=== PATIENT | female | born 1955 | race Caucasian/White ===

== ENCOUNTER 2019-03-04 08:43 | Inpatient (IN) ==
--- NOTE | 2019-03-04 09:20 | PROVIDER DOCUMENTATION ---
HPI-Respiratory General - General Chief Complaint: Shortness of Breath Stated Complaint: SOB / SINUS ISSUES Time Seen by Provider: 03/04/19 09:08 Source: patient Allergies/Adverse Reactions: Patient Allergies Allergy/AdvReac Type Severity Reaction Status Date / Time No Known Allergies Allergy Verified 04/20/15 10:56 Home Medications: Home Medication List Medication Instructions Recorded Confirmed Last Taken Type Cyclobenzaprine [Flexeril] 10 mg PO BID 04/20/15 03/04/19 03/03/19 History 10 MG Gabapentin [Neurontin] 600 mg PO TID 04/20/15 03/04/19 03/04/19 History 600 MG Polyethylene Glycol 3350 [Miralax] 17 gm PO DAILY 04/20/15 03/04/19 02/25/19 History 17 GM - History of Present Illness-Resp Nature of Presenting Problem: [id number] presents to the ER with c/o generalized weakness and SOB. She states she has been fighting a cold since last friday and has progressively got worse. She has a history of COPD and is a current smoker. She denies any fever or hemotysis. She is 96% on RA. She appears mild anxious and is coughing up yellow sputum. Quality of Pain: reports: burning (chest) Severity in ED: reports: moderate Onset/Duration: reports: 1 week ago Timing: reports: getting worse Context: reports: recent URI Cough Quality/Degree: reports: sputum (yellow) Associated Symptoms: reports: cough, shortness of breath. denies: fever/chills Similar Symptoms Previously?: No Recently seen or treated by another doctor?: No Review of Systems - Adult - REVIEW OF SYSTEMS - ADULT Constitutional: reports: see HPI, weight loss (patient reports a "friend told her she looked like she'd lost 10lbs" she hasn't confirmed that). denies: chills, fever Eyes: reports: no symptoms reported Ears, Nose, Mouth & Throat: reports: no symptoms reported, sinus problem. denies: ear pain, epistaxis, hoarseness, throat swelling Cardiovascular: reports: no symptoms reported. denies: chest pain, syncope Respiratory: reports: see HPI, chronic cough, cough, shortness of breath. denies: wheezing Gastrointestinal: reports: no symptoms reported. denies: abdominal pain, nausea, vomiting Genitourinary: reports: no symptoms reported Musculoskeletal: reports: no symptoms reported Integumentary: reports: no symptoms reported Neurological: reports: no symptoms reported. denies: dizziness/vertigo, headache/migraines Psychiatric: reports: no symptoms reported Endocrine: reports: no symptoms reported Hematologic/Lymphatic: reports: no symptoms reported Allergic/Immunologic: reports: no symptoms reported All Other Systems: Reviewed and Negative Past History - Adult - PAST MEDICAL HISTORY-ADULT Review of Records: reports: Old Records Reviewed, Nursing Assessment Review, Medications Reviewed, Social history reviewed & non-contributory. Major Childhood Illnesses: reports: denies history Cardiovascular: reports: denies history Respiratory: reports: denies history Gastrointestinal: reports: denies history Obstetrical/Gynecological: reports: denies history Genitourinary: reports: denies history Musculoskeletal: reports: denies history Neurological: reports: denies history Endocrine/Immune: reports: denies history Other Conditions: reports: denies history - IMMUNIZATION STATUS Childhood Immunizations: See Nurse Assessment Flu Vaccine: See Nurse Assessment - FAMILY HISTORY Family History: reviewed, not pertinent - SOCIAL HISTORY Smoking: cigarettes, less than 1 pack/day Provider spent 3-5 mins advising pt. on dangers of tobacco.: Discussed manners to quit use, and f/u contacts for add'l counseling. Substance Use: denies Living Situation: family Physical Exam-General - PHYSICAL EXAM-ADULT Initial Vital Signs Reviewed: Yes - CONSTITUTIONAL General Appearance: alert, mild distress - EYES Eyes: PERRL/EOMI, pink conjunctivae - HEAD, EARS, NOSE, MOUTH & THROAT HENMT: normocephalic/atraumatic, moist mucous membranes, normal ENT inspection, TMs normal - NECK Neck: non-tender, full range of motion, supple - RESPIRATORY Respiratory: chest non-tender, lungs clear, normal breath sounds, no respiratory distress, no accessory muscle use. negative: crackles, rhonchi, wheezing - CARDIOVASCULAR Cardiovascular: normal peripheral pulses, tachycardia - GASTROINTESTINAL (ABDOMEN) Abdominal Exam: normal bowel sounds, non tender, soft - MUSCULOSKELETAL Extremity: non-tender, normal gait Peripheral Pulses: radial (R): 2+, radial (L): 2+ - SKIN Integumentary: normal color, normal turgor, warm/dry - NEUROLOGIC Neurologic: grossly normal - PSYCHIATRIC Psych/Mental Status: oriented x 3, anxious - HEART Score HEART Score: History: Slightly Suspicious HEART Score: ECG: Normal HEART Score: Age: 45-65 Years HEART Score: Risk Factors for Atherosclerotic Disease: 1 or 2 Risk Factors HEART Score: Troponin: < or = Normal Limit Total HEART Score:: 2 Progress - PLAN OF CARE/RESULTS Progress/Plan/Lab Results: Vital Signs - 8 hr 03/04/19 08:57 03/04/19 10:13 Temperature 98.2 F Pulse Rate 131 H 120 H Respiratory Rate 22 20 Blood Pressure 112/78 O2 Sat by Pulse Oximetry 96 98 Laboratory Results - last 24 hr 03/04/19 03/04/19 03/04/19 09:21 10:19 10:19 WBC RBC Hgb Hct MCV MCH MCHC RDW Std Deviation Plt Count MPV Immature Gran % (Auto) Neut % (Auto) Lymph % (Auto) Roberts % (Auto) Eos % (Auto) Baso % (Auto) Immature Gran # (Auto) Neut # (Auto) Lymph # (Auto) Roberts # (Auto) Eos # (Auto) Baso # (Auto) PT INR PTT (Actin FS) D-Dimer, Quantitative Specimen Type ARTERIAL Sample Site R RADIAL pH 7.51 H pCO2 35 pO2 56 L HCO3 28.5 H Base Excess 4.8 H Oxyhemoglobin 89.3 L* ABG O2 Sat (Calculated) 13.5 L ABG O2 Saturation 93.1 L ABG Carboxyhemoglobin 3.10 H ABG Methemoglobin 0.9 Bimal Test YES A-a O2 Difference 50.0 Total Hemoglobin 10.7 L Lactate 1.10 Blood Gas Modality ROOM AIR FiO2 % 21.0 Sodium Potassium Chloride Carbon Dioxide Anion Gap BUN Creatinine Estimated GFR/1.73 m2 BUN/Creatinine Ratio Glucose Calculated Osmolality Calcium Total Bilirubin AST ALT Alkaline Phosphatase Creatine Kinase 142 Troponin T < 0.010 Total Protein Albumin Globulin Albumin/Globulin Ratio Plasma Lactate Urine Source Urine Color Urine Clarity Urine pH Ur Specific [place] Urine Protein Urine Ketones Urine Blood Urine Nitrite Urine Bilirubin Urine Urobilinogen Urine Microscopic RBC Urine WBC Urine Microscopic WBC Ur Epithelial Cells Urine Crystals Urine Bacteria Urine Casts Urine Yeast Urine Glucose 03/04/19 03/04/19 03/04/19 10:19 10:19 10:19 WBC 20.90 H RBC 3.64 L Hgb 9.8 L Hct 30.6 L MCV 84.1 MCH 26.9 L MCHC 32.0 L RDW Std Deviation 18.6 H Plt Count 573 H MPV 9.8 Immature Gran % (Auto) 0.4 Neut % (Auto) 80.7 H Lymph % (Auto) 9.3 L Roberts % (Auto) 9.0 Eos % (Auto) 0.0 Baso % (Auto) 0.6 Immature Gran # (Auto) 0.09 H Neut # (Auto) 16.84 H Lymph # (Auto) 1.94 Roberts # (Auto) 1.89 H Eos # (Auto) 0.01 Baso # (Auto) 0.13 PT INR PTT (Actin FS) D-Dimer, Quantitative 2.53 H Specimen Type Sample Site pH pCO2 pO2 HCO3 Base Excess Oxyhemoglobin ABG O2 Sat (Calculated) ABG O2 Saturation ABG Carboxyhemoglobin ABG Methemoglobin Bimal Test A-a O2 Difference Total Hemoglobin Lactate Blood Gas Modality FiO2 % Sodium 131 L Potassium 4.3 Chloride 90 L Carbon Dioxide 28 Anion Gap 13 BUN 16 Creatinine 0.7 Estimated GFR/1.73 m2 > 60 BUN/Creatinine Ratio 23 Glucose 129 H Calculated Osmolality 266 Calcium 8.9 Total Bilirubin 0.70 AST 28 ALT 21 Alkaline Phosphatase 115 H Creatine Kinase Troponin T Total Protein 6.8 Albumin 3.2 L Globulin 4.0 Albumin/Globulin Ratio 1.0 Plasma Lactate Urine Source Urine Color Urine Clarity Urine pH Ur Specific [place] Urine Protein Urine Ketones Urine Blood Urine Nitrite Urine Bilirubin Urine Urobilinogen Urine Microscopic RBC Urine WBC Urine Microscopic WBC Ur Epithelial Cells Urine Crystals Urine Bacteria Urine Casts Urine Yeast Urine Glucose 03/04/19 03/04/19 03/04/19 10:19 10:19 10:19 WBC RBC Hgb Hct MCV MCH MCHC RDW Std Deviation Plt Count MPV Immature Gran % (Auto) Neut % (Auto) Lymph % (Auto) Roberts % (Auto) Eos % (Auto) Baso % (Auto) Immature Gran # (Auto) Neut # (Auto) Lymph # (Auto) Roberts # (Auto) Eos # (Auto) Baso # (Auto) PT 14.5 INR 1.07 PTT (Actin FS) 43.8 H D-Dimer, Quantitative Specimen Type Sample Site pH pCO2 pO2 HCO3 Base Excess Oxyhemoglobin ABG O2 Sat (Calculated) ABG O2 Saturation ABG Carboxyhemoglobin ABG Methemoglobin Bimal Test A-a O2 Difference Total Hemoglobin Lactate Blood Gas Modality FiO2 % Sodium Potassium Chloride Carbon Dioxide Anion Gap BUN Creatinine Estimated GFR/1.73 m2 BUN/Creatinine Ratio Glucose Calculated Osmolality Calcium Total Bilirubin AST ALT Alkaline Phosphatase Creatine Kinase Troponin T Total Protein Albumin Globulin Albumin/Globulin Ratio Plasma Lactate 1.8 Urine Source CLEAN CATCH Urine Color GEOFFREY Urine Clarity VERY CLOUDY A Urine pH 6.5 Ur Specific [place] 1.015 Urine Protein 1+(30 mg/dL) A Urine Ketones 1+(Small) A Urine Blood 3+ A Urine Nitrite POSITIVE A Urine Bilirubin 1+ A Urine Urobilinogen 4 Urine Microscopic RBC <10 Urine WBC 1+ A Urine Microscopic WBC 20-40 A Ur Epithelial Cells >10 A Urine Crystals NONE SEEN Urine Bacteria 4+ Urine Casts GRANULAR PRESENT Urine Yeast NONE SEEN Urine Glucose NEGATIVE Orders Category Date Time Status Cardiac Monitoring DIRECTED Care 03/04/19 10:57 Active Notify MD of + Sepsis Screen NOW Care 03/04/19 10:57 Active Saline Loc NOW Care 03/04/19 09:14 Active CHEST-2 VIEWS [RAD] Stat Exams 03/04/19 09:[address] ANGIOGRM PULMONARY ARTERIES [CT] Stat Exams 03/04/19 11:41 Ordered ABG [RESP] Routine Lab 03/04/19 09:21 Completed BLOOD CULTURE [BLDCUL] Stat Lab 03/04/19 10:23 Ordered CBC WITH ELECTRONIC DIFF [HEME] Stat Lab 03/04/19 10:19 Results CK PROFILE [SP CHEM] Stat Lab 03/04/19 10:19 Completed COMPREHENSIVE METABOLIC PANEL [CHEM] Stat Lab 03/04/19 10:19 Completed D-DIMER [COAG] Stat Lab 03/04/19 10:19 Completed LACTATE, PLASMA [CHEM] Lab 03/04/19 12:10 Uncollected LACTATE, PLASMA [CHEM] Lab 03/04/19 15:10 Uncollected LACTATE, PLASMA [CHEM] Stat Lab 03/04/19 10:19 Completed PROTIME WITH INR [COAG] Stat Lab 03/04/19 10:19 Completed PTT [COAG] Stat Lab 03/04/19 10:19 Completed SPUTUM CULTURE WITH GRAM STAIN [RM] Routine Lab 03/04/19 10:23 Ordered TROPONIN T Stat Lab 03/04/19 10:19 Completed UA NIMS W/REFLEX CULT PL [URINALYSIS] Stat Lab 03/04/19 10:19 Completed URINE CULTURE [RM] Routine Lab 03/04/19 11:05 Ordered 0.9% Sodium Chloride Inj [Ns] 1,000 ml Med 03/04/19 10:43 Active IV 999 mls/hr Albuterol 2.5MG/Ipratrop 0.5MG [Duoneb (A & A)] Med 03/04/19 10:13 D iscontinued 3 ml INH NOW ONE Azithromycin 500 mg/Ns [Zithromax 500 mg/Ns] Med 03/04/19 10:02 Discontinued 500 mg in 250 ml IV NOW CefTRIAXONE [Rocephin] 1 gm Med 03/04/19 10:02 Discontinued 0.9% Sodium Chloride Inj [Ns] 50 ml IV NOW Aerosol Treatments Routine Oth 03/04/19 10:14 Completed Aerosol Treatments Stat Oth 03/04/19 09:14 Completed Aerosol Treatments Stat Oth 03/04/19 10:14 Completed Oxygen Device Stat Oth 03/04/19 10:57 Active EKG [EKG] Stat Ther 03/04/19 09:07 Ordered patient verbalizes an understanding of POC and agrees with treatment rendered here today. Patient will be admitted Result Diagrams: 03/04/19 10:19 03/04/19 10:19 - EKG 1 Time of EKG reading by physician:: 09:16 EKG Read and Signed by:: Douglas Caballero EKG Interpretation (*Must complete 3 of following elements*): Abnormal Rate: 132 Rhythm: sinus tach with PACs [place]: normal QRS: normal DC Interval: normal ST Wave: normal - CONSULTS/PCP/HOSPITALIST Notification #1 *Consult/PCP/Hospitalist*: Dr Wheeler Time Discussed: 11:46 Reason/Comments: Pnuemonia, UTI Consult Disposition: Admit Departure - Departure Date of Disposition Decision: 03/04/19 Time of Disposition Decision: 11:47 DIAGNOSIS: Pneumonia Qualifiers: Pneumonia type: due to unspecified organism Laterality: unspecified laterality Lung location: unspecified part of lung Qualified Code(s): J18.9 - Pneumonia, unspecified organism UTI (urinary tract infection) Qualifiers: Urinary tract infection type: site unspecified Hematuria presence: with hematuria Qualified Code(s): N39.0 - Urinary tract infection, site not specified; R31.9 - Hematuria, unspecified Disposition: ADMITTED INPATIENT 09 Certified Medical Emergency: Emergent Condition: Critical Additional Freetext Instructions: ED Follow Up Instructions: You have been treated by a care provider in the Emergency Department. These instructions are being provided to you so you can have an understanding of how t o care for yourself upon discharge. Upon discharge from the Emergency Department, you are responsible for making arrangements for follow-up care by a physician of your choice. Take all prescribed medications as directed. Return to the Emergency Department immediately for any new or worsening symp toms. You may call the Physician Referral phone number at [phone] to obtain a list of Physicians who are taking new patients. Referrals and Follow-Ups: Jordana Lomax MD [Primary Care Provider] - - Critical Care Note This patient required my direct & personal management of CC.: Yes Total Time (mins): 33 Critical Care Statement: This patient required my direct personal management to treat or rule out processes, the absence of which, could potentiallly result in sudden, clinically significant life or limb threatening deterioration. Attestation - Physician/ GELA Attestation Patient care was provided by Advanced Practice Provider:: Yes Advanced Practice Provider:: Elton Lujan Advanced Practice Provider documentation review:: The Mid-level provider documentation, treatment plan and medical decision making was reviewed by the physician who agrees with all treatment and medical decision making by the P. The physician spent face to face time with patient:: No Advanced Practice Provider documentation review:: Supervising physician onsite and consulted in the evaluation and care of this patient. The physician did not have a face to face encounter with the patient.
[2019-03-04 09:46] LABS: BE 4.8 mmoll (-3.0-3.0); BLOOD TYPE ARTERIAL; HCO3-(ACT) 28.5 mmoll (20.0-26.0); METHB 0.9 % (0.0-1.5); O2(CT) 13.5 mL/dL (15.0-23.0); PCO2(98.6) 35 mmHg (35-45); PO2(98.6) 56 mmHg (60-100); SAMPLE BLOOD; SAO2 93.1 % (95.0-100.0); THB 10.7 g/dL (11.5-17.4); pH(98.6) 7.51 (7.35-7.45)
[2019-03-04 09:51] LABS: ALLEN TEST YES; MODALITY ROOM AIR; O2HB 89.3 % (95.0-99.0)
--- NOTE | 2019-03-04 10:00 | Diag Imaging Result Doc PS360 ---
EXAM: CHEST-2 VIEWS INDICATION: sob TECHNIQUE: 2 views COMPARISON: 04/20/2015 FINDINGS: There is a dense airspace consolidation at the right lung base in the right lower lobe indicating pneumonia. There is also likely a small right pleural effusion and a component of atelectasis. The left lung is clear. The cardiomediastinal silhouette and central vasculature are grossly unremarkable. IMPRESSION: Right basilar airspace consolidation suggesting pneumonia and a small right effusion as described. Electronically signed by Denis Decker 03/04/2019 9:57 AM
[2019-03-04] MEDS ORDERED: ZITHROMAX 500 MG/NS 500 MG/250 ML IVPB IV ONE (10:02)
[2019-03-04] MEDS ORDERED: ROCEPHIN 1 GM in NS 50 ML IV ONE (10:02)
[2019-03-04] MEDS ORDERED: DUONEB (A & A) INH ONE (10:13)
[2019-03-04] MEDS ORDERED: NS 1,000 ML IV ONE ×4 (10:43→20:00)
[2019-03-04 10:53] LABS: BILIRUBIN URINE 1+ (NEGATIVE); BLOOD URINE 3+ (NEGATIVE); CLARITY VERY CLOUDY (CLEAR); COLOR AMBER; GLUCOSE URINE NEGATIVE (NEGATIVE); KETONE URINE 1+(Small) mg/dL (NEGATIVE); LEUKOCYTES URINE 1+ (NEGATIVE); NITRITE URINE POSITIVE (NEGATIVE); PH URINE 6.5; PROTEIN URINE 1+(30 mg/dL) mg/dL (NEGATIVE); SP GRAVITY URINE 1.015; UROBILINOGEN URINE 4 mg/dL
[2019-03-04 10:54] LABS: BASO# 0.13 X1000 (0.0-0.2); BASO% 0.6 % (0.0-0.8); EOS# 0.01 X1000 (0.0-0.7); HEMATOCRIT 30.6 % (37.0-47.0); HEMOGLOBIN 9.8 g/dL (12.0-16.0); IMM GRAN# 0.09 X1000 (0.0-0.04); IMM GRAN% 0.4 % (0.0-0.5); LYMPH# 1.94 X1000 (1.2-3.4); LYMPH% 9.3 % (20.5-51.1); MCH 26.9 PG (27-31); MCV 84.1 FL (81-99); MONO# 1.89 X1000 (0.11-0.59); MPV 9.8 FL (7.4-10.4); NEUT# 16.84 X1000 (1.4-6.5); NEUT% 80.7 % (42.2-75.2); PLT 573 X1000 (130-400); RBC 3.64 XMIL (4.2-5.4); RDW 18.6 % (11.5-14.5)
[2019-03-04 10:55] LABS: AGAP 13; ALBUMIN 3.2 g/dL (3.5-5.0); ALKALINE PHOSPHATASE 115 U/L (32-104); BUN 16 mg/dL (8-22); CALCIUM 8.9 mg/dL (8.8-10.2); CHLORIDE 90 mmol/L (98-107); COSMO 266; CREATININE 0.7 mg/dL (0.5-0.9); ESTIMATED GFR > 60; GLUCOSE 129 mg/dL (70-104); GOT 28 U/L (10-30); GPT 21 U/L (10-36); POTASSIUM 4.3 mmol/L (3.5-5.1); SODIUM 131 mmol/L (136-145); TCO2 28 mmol/L (25-35); TOTAL PROTEIN 6.8 g/dL (6.3-8.3)
[2019-03-04 11:05] LABS: URINE BACTERIA 4+ /HFP; URINE CAST GRANULAR PRESENT /LPF; URINE CRYSTAL NONE SEEN /HPF; URINE EPITHELIAL CELLS >10 /HPF (<10); URINE RBC <10 /HPF (<10); URINE SOURCE CLEAN CATCH; URINE WBC 20-40 /HPF (<10); URINE YEAST NONE SEEN /HPF
[2019-03-04 11:33] LABS: INR 1.07; PROTIME 14.5 Seconds (11.0-16.0)
[2019-03-04 11:34] LABS: PTT 43.8 Seconds (22.3-41.8)
[2019-03-04] MEDS ORDERED: TYLENOL PO PRN (11:49)
[2019-03-04] MEDS ORDERED: VANCOMYCIN IV PER PHARMACY MISC SCH ×2 (12:00→19:15)
--- NOTE | 2019-03-04 12:01 | EKG Report ---
Test Performed on : 03/04/2019 09:16:39 AM Test Reason : sob Blood Pressure : / mmHG Vent. Rate : 132 BPM Atrial Rate : 132 BPM P-R Int : 134 ms QRS Dur : 066 ms QT Int : 310 ms P-R-T Axes : 035 068 053 degrees QTc Int : 459 ms Sinus tachycardia. with premature atrial complexes. Possible Left atrial enlargement Borderline ECG When compared with ECG of 20-APR-2015 12:09, premature atrial complexes. are now present Vent. rate has increased BY [address] no longer elevated in Anterior leads Unconfirmed Result
--- NOTE | 2019-03-04 12:34 | Diag Imaging Result Doc PS360 ---
EXAM: CT ANGIOGRM PULMONARY ARTERIES HISTORY: sob TECHNIQUE: CT chest with intravenous contrast. Pulmonary arterial protocol with MIP images. COMPARISON: None. FINDINGS: Large dense infiltrate with consolidation of the right lower lobe. There is thickening to the right lower lobe mainstem bronchus. There is occlusion of multiple branches inferiorly. There is a small right pleural effusion measuring 1.6 cm posteriorly and inferiorly in the midline. There are enlarged mediastinal and right hilar lymph nodes. Normal opacification of the pulmonary arteries. No thoracic aortic aneurysm or dissection. No cardiomegaly. No left pleural effusion. No infiltrates in the left lung. IMPRESSION: 1.Findings suspicious for a right lower lobe mass with postobstructive consolidation. Bronchoscopy recommended. 2.No pulmonary emboli This exam was performed using automated exposure control, adjustment of mA or kV according to patient size, and/or use of iterative reconstruction technique. Electronically signed by Greg Arreguin 03/04/2019 12:32 PM
[2019-03-04 12:44] LABS: BANDS 3 % (0-1); LYMPHS 12 % (21-51); MONO 5 % (1-9); SEGS 80 % (42-75)
[2019-03-04 12:45] LABS: ANISOCYTOSIS 2+
[2019-03-04] MEDS ORDERED: VANCOMYCIN 2,000 MG in NS 500 ML IV ONE (13:00)
[2019-03-04] MEDS: NEURONTIN PO SCH ×3 (13:26→16:57)
[2019-03-04] MEDS: ZOSYN 3.375 GM in NS 50 ML IV SCH ×3 (13:27→20:29)
--- NOTE | 2019-03-04 15:04 | HISTORY AND PHYSICAL ---
PRIMARY CARE PROVIDER: Dr. Lomax. CHIEF COMPLAINT: Shortness of breath, chest burning, dizziness with vision swirls, and yellow phlegm production. HISTORY OF PRESENT ILLNESS: Ms. 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 Presents with complaints of upper respiratory infection type symptoms that started Friday after she mowed the lawn. It originally started in her sinuses causing itchy eyes, sneezing, coughing. She took Benadryl 2 days in a row twice a day but still yet continued to have those issues plus started developing a chest burning pain, yellow phlegm production and dizziness, lightheadedness with some visual swirling but never passing out. Denies any fevers. Imaging revealed that she has a right lower lobe pneumonia that is likely postobstructive. There has been a new right lower lobe mass found. She also likely has a urinary tract infection but is asymptomatic other than she has dark urine. We will transfer her to [facility] so she can get a pulmonary consult to evaluate the mass. PAST MEDICAL HISTORY: 1. COPD. 2. Diverticulosis. 3. Occasional constipation. 4. Neuropathy after neck surgery, numbness and pain on the right side of her body and left hand numbness. SURGICAL HISTORY: 1. Anterior cervical neck fusion. 2. Sigmoid colon resection. The resection was due to stricture. 3. Hysterectomy. 4. Bilateral ureteral stents. SOCIAL HISTORY: Two pack per day smoker. Started smoking in 1973. One to 5 beers per day. Her last beer was yesterday evening. Smokes marijuana about once a week all day long. Last time she smoked marijuana was around 5 or 6 days ago. She is , has pets but no kids. She is an [employer] , was in the [employer] for 9 years. Actually moved to the [facility] in [place]. I believe most of her family is from [place] for which she does not really stay in touch with. FAMILY HISTORY: Mother had dementia. Father, she is really not sure. She had 3 brothers but she is really not sure about their medical history either. ALLERGIES: No known drug allergies. She does say that codeine does not really make her feel good. HOME MEDICATIONS: 1. Flexeril 10 mg p.o. twice daily. 2. MiraLAX 17 g p.o. daily. 3. Neurontin 600 mg p.o. t.i.d. REVIEW OF SYSTEMS: Fourteen point review of systems are complete and all were negative except for those mentioned above in HPI. PHYSICAL EXAMINATION: VITAL SIGNS: Temperature is 98.2 degrees, heart rate 120, respiratory rate 20, blood pressure 112/78, O2 saturation 98% on room air. She is 5 feet 11 inches tall, 160 pounds, BMI 22.3. GENERAL: Ms. Vesna Snow is a 63-year-old female. She is in no acute distress. She is able answer questions appropriately. HEENT: Atraumatic, normocephalic. Pupils equal, round, reactive to light. Extraocular movements intact. Mucous membranes dry. NECK: Trachea midline. CARDIOVASCULAR: S1, S2. Tachycardic rate and rhythm. No rubs, gallops, murmurs. No lower extremity edema. +2 dorsalis and radial pulses. Negative JVD or carotid bruits. PULMONARY: Clear to auscultation. Bilateral breath sounds, coarse in the right base with some rhonchi. No accessory muscle use or work of breathing noted. Tolerating room air. GASTROINTESTINAL: Soft, nontender, nondistended. Positive bowel sounds x4. EXTREMITIES: Moves all extremities equally. Full range of motion. NEUROLOGIC: Alert and oriented x3. Follows commands. Sensory is intact. SKIN: Warm, dry, intact. LABORATORY DATA: White blood cells 20,000, hemoglobin 9, hematocrit 30, platelet count 573,000. INR is 1.07, D-dimer 2.53. ABGs on room air, pH 7.51, pCO2 35, PO2 56, bicarb 28, base excess 4.8, saturation 89%. Lactate 1.10. Sodium 131, potassium 4.3, BUN 16, creatinine 0.7, glucose 129, calcium 8.9. Bilirubin 0.70, AST 28, ALT 21, CK 142, troponin less than 0.01. Albumin 3.2. Lactate x2 is 1.8 and 1.3. Urinalysis, very cloudy, 1+ protein, 1+ ketones, 3+ blood, positive nitrites, 1+ bilirubin, 1+ white blood cells, 20 to 40 microscopic white blood cells, 4+ bacteria. IMAGING: Chest x-ray. Right basilar airspace consolidation suggestive of pneumonia and right pleural effusion. Then had a pulmonary arteriogram which showed suspicious right lower lobe mass with postobstructive consolidation. Bronchoscopy is recommended. No PE. EKG, sinus tachycardia, rate 132, QTc was 459. ASSESSMENT AND PLAN: 1. Right lower lobe mass with postobstructive pneumonia. She will be on vancomycin and Zosyn, nebulizers and will send to [facility] with a Pulmonary consult. 2. Urinary tract infection. Also with a history of year bilateral ureteral stents by Dr. Da Silva in 2014. The patient does not even remember having that done. Again, will be on gram- negative coverage. Follow up with culture. 3. History of neuropathy. We will continue home medications. 4. Diverticulosis with occasional constipation. No complaints at this time. 5. Chronic obstructive pulmonary disease. Actually is not on any medications for this at home. She will be on nebulizers here. 6. Deep venous thrombosis prophylaxis. SCDs. Dictated by BAKARI Hammer for Will Boudreaux MD Addendum: Patient seen and examined by myself. Agree with BAKARI note. It reflects my assessment and plan. Patient is admitted to hospital for right lower lobe pna. In the CT of chest it looks like there is a mass as well so will transfer this patient to [facility] and will consult Pulmonary for possible bronchoscopy. cc: BAKARI Hammer MD [facility]
[2019-03-04] MEDS: XOPENEX NEB INH SCH ×3 (15:57→23:51)
[2019-03-04] MEDS: ATROVENT NEB INH SCH ×4 (15:57→23:52)
[2019-03-04] MEDS ORDERED: NEURONTIN PO SCH (17:00)
[2019-03-04] MEDS ORDERED: NICODERM PATCH TD SCH (18:00)
[2019-03-04] MEDS: PULMICORT INH SCH (19:30)
[2019-03-04] MEDS ORDERED: XOPENEX NEB INH SCH (19:30)
[2019-03-04] MEDS ORDERED: PULMICORT INH SCH (19:30)
[2019-03-04] MEDS: LOVENOX SUBQ SCH (20:29)
[2019-03-04] MEDS: VANCOMYCIN 1,200 MG in NS 250 ML IV SCH (20:29)
[2019-03-05] MEDS ORDERED: VANCOMYCIN 1,200 MG in NS 250 ML IV SCH (02:00)
[2019-03-05] MEDS: ZOSYN 3.375 GM in NS 50 ML IV SCH ×4 (02:49→19:45)
[2019-03-05] MEDS: ATROVENT NEB INH SCH ×5 (03:20→20:32)
[2019-03-05] MEDS: XOPENEX NEB INH SCH ×5 (03:20→20:33)
[2019-03-05 05:19] LABS: BASO# 0.07 X1000 (0.0-0.2); BASO% 0.5 % (0.0-0.8); EOS# 0.01 X1000 (0.0-0.7); EOS% 0.1 % (0.0-10.0); HEMATOCRIT 23.2 % (37.0-47.0); HEMOGLOBIN 7.6 g/dL (12.0-16.0); IMM GRAN# 0.05 X1000 (0.0-0.04); IMM GRAN% 0.4 % (0.0-0.5); LYMPH# 1.77 X1000 (1.2-3.4); MCH 27.2 PG (27-31); MCHC 32.8 g/dL (33-37); MCV 83.2 FL (81-99); MONO# 1.21 X1000 (0.11-0.59); MONO% 8.9 % (1.7-9.3); MPV 9.2 FL (7.4-10.4); NEUT# 10.51 X1000 (1.4-6.5); NEUT% 77.1 % (42.2-75.2); PLT 520 X1000 (130-400); RBC 2.79 XMIL (4.2-5.4); RDW 18.7 % (11.5-14.5); WBC 13.62 X1000 (4.8-10.8)
[2019-03-05 05:52] LABS: AGAP 13; ALB/GLOB RATIO 0.5; ALKALINE PHOSPHATASE 81 U/L (32-104); BUN 10 mg/dL (8-22); CALCIUM 7.7 mg/dL (8.8-10.2); CHLORIDE 99 mmol/L (98-107); COSMO 272; CREATININE 0.5 mg/dL (0.5-0.9); ESTIMATED GFR > 60; GLUCOSE 148 mg/dL (70-104); GOT 18 U/L (10-30); GPT 14 U/L (10-36); POTASSIUM 3.3 mmol/L (3.5-5.1); SODIUM 135 mmol/L (136-145); TCO2 23 mmol/L (25-35); TOTAL BILIRUBIN 0.36 mg/dL (0.20-1.00); TOTAL PROTEIN 5.7 g/dL (6.3-8.3)
[2019-03-05 07:20] LABS: LYMPHS 15 % (21-51); MONO 10 % (1-9); SEGS 75 % (42-75)
[2019-03-05] MEDS: NICODERM PATCH TD SCH (08:02)
[2019-03-05] MEDS: NEURONTIN PO SCH ×3 (08:02→17:11)
[2019-03-05] MEDS: MIRALAX PO SCH ×2 (08:03→12:21)
--- NOTE | 2019-03-05 08:23 | Diag Imaging Result Doc PS360 ---
EXAM: CHEST-2 VIEWS HISTORY: Pneumonia TECHNIQUE: Chest two views COMPARISON: 03/04/2019 FINDINGS: Worsening right middle and lower lobe pneumonia. Worsening atelectasis in the right base as well. There is a small right pleural effusion. No cardiomegaly. No pulmonary edema. Mild scoliosis. IMPRESSION: Worsening right-sided pneumonia and atelectasis Electronically signed by Greg Arreguin 03/05/2019 8:22 AM
[2019-03-05] MEDS: PULMICORT INH SCH ×2 (08:44→20:33)
[2019-03-05] MEDS ORDERED: MIRALAX PO SCH (09:00)
[2019-03-05] MEDS ORDERED: ROCEPHIN 1 GM in NS 50 ML IV SCH (09:00)
[2019-03-05] MEDS ORDERED: LOVENOX SUBQ SCH (09:00)
[2019-03-05] MEDS: VANCOMYCIN 1,200 MG in NS 250 ML IV SCH (10:19)
[2019-03-05] MEDS: FLEXERIL PO SCH (11:28)
[2019-03-05] MEDS ORDERED: FLEXERIL PO SCH (12:00)
--- NOTE | 2019-03-05 16:58 | PROGRESS NOTE ---
DATE: 03/05/2019 SUBJECTIVE: Today, Ms. Snow refers to be doing well. At the time of the encounter, her female partner was at the bedside, who had a lot of questions. Ms. Snow herself refers to feel slightly better. OBJECTIVE: Vital signs: Blood pressure is 103/58, pulse of 60, respiration is 20, temperature is 98.3 degrees. Patient is saturating 94%. General: Ms. Snow is a 63-year-old, female. She is in bed. No distress. Mucosa is pink and moist. Anicteric, acyanotic. Neck: Supple. Chest: Air entry is bilaterally reduced, but more so to the right posterior lung field. There is remarkable dullness to percussion to the right posterior lung field. There is also increased vocal fremitus. Cardiovascular: Regular rate and rhythm. There are no murmurs, no rubs, no gallops. Gastrointestinal: Abdomen is soft, nontender. Bowel sounds present. Extremities: No pedal edema. Distal pulses are present. Central nervous system: Patient is awake, alert, and oriented. LABORATORY DATA: CBC reviewed from yesterday: WBC is down to 13.62, hemoglobin is 7.6, platelet count 520,000. Chemistry was also reviewed. Patient has a sodium of 135, albumin is 2.0. Urine is also remarkably abnormal. The sputum culture is showing gram-negative marianela +2, but it says normal lyubov. IMAGING STUDIES: CTA of the lungs was negative for PE, but there is a finding suspicious for a right lower lobe mass with postobstructive consolidation. A chest x-ray this morning, shows worsening right-sided pneumonia and atelectasis. ASSESSMENT/PLAN: 1. Acute hypoxemic respiratory failure on presentation. The patient continues to need intermittently nasal cannula oxygenation. 2. Right lower lobe consolidation. Concerning for postobstructive pneumonia with an underlying possible lung mass. The patient is currently on antimicrobial coverage. We will get urine Legionella and Streptococcus pneumoniae titers. We will also do procalcitonin levels and will get Pulmonary Medicine to evaluate her for possible bronchoscopy. 3. Suspected chronic obstructive pulmonary disease with some mild bronchospasm. 4. Hyponatremia concerning for possible syndrome of inappropriate antidiuretic hormone secretion. We will continue to monitor this. 5. History of tobacco use and abuse. Cessation counseling has been offered. cc: Gautam Lagunas MD
[2019-03-05] MEDS: SOLU-MEDROL IV SCH (17:11)
[2019-03-05] MEDS: LOVENOX SUBQ SCH (19:45)
[2019-03-06] MEDS: XOPENEX NEB INH SCH ×7 (00:07→23:38)
[2019-03-06] MEDS: ATROVENT NEB INH SCH ×7 (00:07→23:38)
[2019-03-06] MEDS: ZOSYN 3.375 GM in NS 50 ML IV SCH ×4 (01:31→19:34)
[2019-03-06] MEDS: SOLU-MEDROL IV SCH ×2 (03:52→18:07)
[2019-03-06 06:47] LABS: BASO# 0.02 X1000 (0.0-0.2); BASO% 0.3 % (0.0-0.8); EOS# 0.02 X1000 (0.0-0.7); EOS% 0.3 % (0.0-10.0); HEMATOCRIT 26.1 % (37.0-47.0); HEMOGLOBIN 8.3 g/dL (12.0-16.0); IMM GRAN# 0.02 X1000 (0.0-0.04); IMM GRAN% 0.3 % (0.0-0.5); LYMPH# 0.78 X1000 (1.2-3.4); LYMPH% 10.5 % (20.5-51.1); MCH 26.9 PG (27-31); MCHC 31.8 g/dL (33-37); MCV 84.7 FL (81-99); MONO# 0.25 X1000 (0.11-0.59); MONO% 3.4 % (1.7-9.3); MPV 9.3 FL (7.4-10.4); NEUT# 6.33 X1000 (1.4-6.5); NEUT% 85.2 % (42.2-75.2); PLT 618 X1000 (130-400); RBC 3.08 XMIL (4.2-5.4); RDW 18.7 % (11.5-14.5); WBC 7.42 X1000 (4.8-10.8)
--- NOTE | 2019-03-06 07:06 | Diag Imaging Result Doc PS360 ---
EXAM: CHEST-PORTABLE 03/06/2019 HISTORY: dyspnea TECHNIQUE: AP portable at 0456 COMMENT: There is a right pleural effusion. This was also present on 03/05/2019. There is some atelectasis in the left base which has worsened since the previous study. There is slight clearing of the opacity in the right base however. The heart size and pulmonary vascularity are within normal limits. IMPRESSION: Worsened left lower lobe atelectasis. Improved atelectasis or pneumonia in the right lower and middle lobe. Electronically signed by Uriah Mills 03/06/2019 7:04 AM
[2019-03-06 07:25] LABS: AGAP 11; ALB/GLOB RATIO 0.5; ALBUMIN 2.3 g/dL (3.5-5.0); ALKALINE PHOSPHATASE 95 U/L (32-104); BUN 9 mg/dL (8-22); CALCIUM 7.9 mg/dL (8.8-10.2); CHLORIDE 100 mmol/L (98-107); COSMO 278; CREATININE 0.5 mg/dL (0.5-0.9); ESTIMATED GFR > 60; GLUCOSE 225 mg/dL (70-104); GOT 14 U/L (10-30); GPT 14 U/L (10-36); POTASSIUM 3.2 mmol/L (3.5-5.1); SODIUM 136 mmol/L (136-145); TCO2 25 mmol/L (25-35); TOTAL BILIRUBIN 0.16 mg/dL (0.20-1.00); TOTAL PROTEIN 6.5 g/dL (6.3-8.3)
[2019-03-06] MEDS: PULMICORT INH SCH ×2 (07:56→19:51)
[2019-03-06 07:58] LABS: BANDS 2 % (0-1); LYMPHS 18 % (21-51); MONO 4 % (1-9); SEGS 74 % (42-75)
[2019-03-06] MEDS: NICODERM PATCH TD SCH (08:06)
[2019-03-06] MEDS: NEURONTIN PO SCH ×3 (08:06→18:04)
[2019-03-06] MEDS: MIRALAX PO SCH (08:06)
[2019-03-06] MEDS ORDERED: KLOR-CON PO ONE (08:58)
--- NOTE | 2019-03-06 09:39 | PROVIDER PROGRESS NOTE ---
Progress Note Additional Pulmonary note: We will consider bronchoscopy next week. I will Discuss with the patient.
[2019-03-06] MEDS: VANCOMYCIN 1,200 MG in NS 250 ML IV SCH ×2 (09:55→21:00)
[2019-03-06] MEDS: FLEXERIL PO SCH (13:46)
--- NOTE | 2019-03-06 15:47 | PROGRESS NOTE ---
DATE: 03/06/2019 SUBJECTIVE: This morning Ms. Snow refers to be feeling a lot better than yesterday. She still continue coughing with some tristan greenish expectoration. OBJECTIVE: Vitals: Blood pressure is 124/57, pulse is 88, respiration is 18, temperature 97.8 degrees, patient is saturating 95% on room air. General: Ms. Snow 63-year-old female she was in bed no distress. Mucosa is pink and moist. Anicteric, acyanotic. Neck: Supple. Chest: Good entry bilateral. There is still some crackles in posterior lung field with diffuse end expiratory wheezing. Cardiovascular: Regular rate and rhythm. No murmurs, no rubs, no gallops. Abdomen: Soft, distended but nontender. Bowel sounds present. Extremities: No pedal edema. There is chronic deformity of the right knee from previous meniscus injury. No pedal edema. 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 There is no focal neurological deficit. LABORATORY DATA: WBC is down to 7.42, hemoglobin is 8.3, platelet count of 618,000, patient had only 2% of bands on peripheral smear. Chemistry is also reviewed, potassium is 3.2 rest of chemistry is unremarkable. So far blood cultures and urine cultures have been negative. Sputum culture shows normal lyubov. DIAGNOSTIC STUDIES: A chest x-ray this morning shows worsened left lower lobe atelectasis but improved atelectasis or pneumonia in the right lower lobe and middle lobe. ASSESSMENT: 1. Acute hypoxemic respiratory failure on presentation. 2. Right lower lobe consolidation concerning for postobstructive pneumonia, a chest x-ray this morning seems to suggest improvement, patient feels better. 3. Suspected right lower lobe mass, will continue to monitor this, reevaluate with chest x-ray on Friday and there is a plan for bronchoscopy by Pulmonary Medicine during the week. 4. Suspected chronic obstructive pulmonary disease with exacerbation improving, patient is wheezing less . 5. Hyponatremia improved. 6. History of tobacco use and abuse, cessation has been advised. 7. Hypokalemia. Will replace this . 8. So in general Ms. Snow is feeling better. White cell count is normalized and chest x-ray seems to suggest some improvement in the right lower lobe consolidation. We are going to continue with the current antimicrobial coverage (vancomycin and Zosyn), patient is also get nebulizations and steroids. Will reevaluate her chest x-ray on Friday and will also continue following the recommendations of Pulmonary Medicine. cc: Gautam Lagunas MD
--- NOTE | 2019-03-06 15:47 | PULMONOLOGY CONSULTATION ---
DATE: 03/06/2019 CHIEF COMPLAINT: Shortness of breath. 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 She currently has a complaint of respiratory congestion which worsened after she mowed her lawn. Recent CT angiogram revealed suspicion of a right lower lobe mass with postobstructive consolidation. PAST MEDICAL HISTORY: As mentioned in the HPI. REVIEW OF SYSTEMS: A 10 point review of systems was conducted and the pertinent is listed within the HPI, otherwise noncontributory. ALLERGIES: No known drug allergies. SOCIAL HISTORY: Smoker, 2 packs per day. Admits to drinking alcohol. Marijuana use. Lives at home with her . [employer] . FAMILY HISTORY: Mother had dementia. Father unsure. HOME MEDICATIONS: Please see home reconciliation list. PHYSICAL EXAMINATION: VITAL SIGNS: Temperature 98.2, blood pressure 124/57, pulse 88, respirations 18, and O2 saturation 95% on room air. GENERAL: This is a 63-year-old female lying in bed in no acute distress at the present time. HEENT: Head is atraumatic, normocephalic. Pupils are equal, round, and reactive to light. Mucous membranes are dry. NECK: Supple. Trachea midline. CARDIOVASCULAR: S1 and S2 are auscultated. No gallops, rubs, or murmurs. +2 pedal pulses. PULMONARY: Clear to auscultation, bilateral breath sounds, unlabored. Coarse in the right base with some rhonchi noted. GI: Soft, nontender, and distended. Positive bowel sounds in all 4 quadrants. EXTREMITIES: Without clubbing, cyanosis, or edema. NEUROLOGIC: Alert and oriented times 3. Follows commands. SKIN: Warm, dry, and intact. LABORATORY DATA: White blood cells 7.42, red blood cells 3.08, hemoglobin 8.3, and hematocrit 26.1. Potassium 3.2, sodium 136, chloride 100, carbon dioxide 25, BUN 9, creatinine 0.5, glucose 225, calcium 7.9, bilirubin 0.16, and albumin 2.3. DIAGNOSTIC DATA: As mentioned in the HPI. ASSESSMENT AND PLAN: 1. Possible left lower lobe pulmonary mass with postobstructive consolidation. We will schedule a bronchoscopy. 2. Pneumonia, right middle lobe and right lower lobe with atelectasis in the right base. Continue antibiotics, bronchodilators, and steroids as prescribed. Thank you for the courtesy of this consult. Dictated by BAKARI Damon for Dominguez Reis MD cc: BAKARI Damon MD
[2019-03-06] MEDS: LOVENOX SUBQ SCH ×2 (18:04→19:34)
[2019-03-07] MEDS: ZOSYN 3.375 GM in NS 50 ML IV SCH ×4 (02:04→20:04)
[2019-03-07] MEDS: XOPENEX NEB INH SCH ×6 (03:53→23:44)
[2019-03-07] MEDS: ATROVENT NEB INH SCH ×6 (03:53→23:44)
[2019-03-07] MEDS: SOLU-MEDROL IV SCH ×2 (04:36→18:22)
[2019-03-07] MEDS: TYLENOL PO PRN ×2 (04:45→11:27)
[2019-03-07 07:32] LABS: INR 1.16
[2019-03-07] MEDS: PULMICORT INH SCH ×2 (07:32→19:50)
[2019-03-07 07:33] LABS: PTT 39.1 Seconds (22.3-41.8)
[2019-03-07 07:51] LABS: AGAP 9; ALB/GLOB RATIO 0.6; ALBUMIN 2.4 g/dL (3.5-5.0); ALKALINE PHOSPHATASE 91 U/L (32-104); BUN 13 mg/dL (8-22); CALCIUM 8.7 mg/dL (8.8-10.2); CHLORIDE 102 mmol/L (98-107); COSMO 281; CREATININE 0.7 mg/dL (0.5-0.9); ESTIMATED GFR > 60; GLUCOSE 151 mg/dL (70-104); GOT 15 U/L (10-30); GPT 14 U/L (10-36); POTASSIUM 4.4 mmol/L (3.5-5.1); SODIUM 139 mmol/L (136-145); TCO2 28 mmol/L (25-35); TOTAL BILIRUBIN < 0.15 mg/dL (0.20-1.00); TOTAL PROTEIN 6.2 g/dL (6.3-8.3)
[2019-03-07 08:09] LABS: BASO# 0.01 X1000 (0.0-0.2); BASO% 0.1 % (0.0-0.8); HEMATOCRIT 26.6 % (37.0-47.0); HEMOGLOBIN 8.5 g/dL (12.0-16.0); IMM GRAN# 0.06 X1000 (0.0-0.04); IMM GRAN% 0.4 % (0.0-0.5); LYMPH# 1.35 X1000 (1.2-3.4); LYMPH% 9.3 % (20.5-51.1); MCH 27.3 PG (27-31); MCV 85.5 FL (81-99); MONO# 0.61 X1000 (0.11-0.59); MONO% 4.2 % (1.7-9.3); MPV 9.1 FL (7.4-10.4); NEUT# 12.52 X1000 (1.4-6.5); PLT 784 X1000 (130-400); RBC 3.11 XMIL (4.2-5.4); RDW 19.1 % (11.5-14.5); WBC 14.55 X1000 (4.8-10.8)
[2019-03-07] MEDS: MIRALAX PO SCH (08:20)
[2019-03-07] MEDS: NEURONTIN PO SCH ×3 (08:20→18:22)
[2019-03-07] MEDS: NICODERM PATCH TD SCH (08:30)
[2019-03-07 08:52] LABS: BANDS 4 % (0-1); LYMPHS 8 % (21-51); MONO 2 % (1-9); SEGS 86 % (42-75)
[2019-03-07] MEDS: VANCOMYCIN 1,200 MG in NS 250 ML IV SCH (09:34)
[2019-03-07] MEDS ORDERED: TUMS EXTRA STRENGTH PO PRN (13:05)
[2019-03-07] MEDS ORDERED: TUMS EXTRA STRENGTH PO ONE (13:05)
[2019-03-07] MEDS ORDERED: PRILOSEC PO ONE (13:06)
[2019-03-07] MEDS: FLEXERIL PO SCH (14:07)
--- NOTE | 2019-03-07 14:36 | PROGRESS NOTE ---
DATE: 03/07/2019 SUBJECTIVE: This morning, Ms. Snow refers to be doing a lot better. She was actually sitting up in a chair, less coughing, and no expectoration. Ms. Snow toe did complain of heartburn today. OBJECTIVE: Vital Signs: Blood pressure is 124/54, pulse of 88, respirations 18, temperature 97.7 degrees, the patient is saturating 94% on 2 L. General: Ms. Snow is a 63-year-old female. She is sitting up in a chair. No distress. HEENT: Mucosa is pink and moist. Anicteric. Acyanotic. Neck: Supple. Chest: Good air entry bilaterally. Still a few crackles posteriorly, more so to the right posterior lung. A few expiratory wheezing. Cardiovascular: Regular rate and rhythm. No murmurs, no rubs, no gallops. GI: Abdomen was soft, nontender. Bowel sounds present. Extremities: No pedal edema. Some chronic deformity of the right knee from previous meniscus injury. 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 IMAGING AND LABORATORY DATA: WBC is 14.55, hemoglobin is 8.5, platelet count of 784, there are only 8% bands on the peripheral smear. Chemistry is reviewed and completely normal. No imaging today. MEDIATIONS: The patient continues to be on vancomycin and Zosyn. Today is day 3 on both antibiotics. ASSESSMENT: 1. Acute hypoxemic respiratory failure on presentation, improving. 2. Right lower lobe consolidation concerning for postobstructive pneumonia. The patient is on antimicrobial therapy. 3. Suspected right lower lobe mass. Will repeat a chest x-ray tomorrow morning, and there is also a plan for bronchoscopy by Pulmonary Medicine, hopefully on Friday. 4. Suspected underlying chronic obstructive pulmonary disease with exacerbation. Will continue with bronchodilation therapy, steroids, and antimicrobials. 5. Hyponatremia, improved. 6. History of tobacco use and abuse. Cessation has been advised. 7. Hypokalemia, resolved. 8. Protein calorie malnutrition with presenting albumin of 2.0. This is gradually getting better. 9. Gastroesophageal reflux disease. Will start the patient on symptomatic treatment. cc: Gautam Lagunas MD
[2019-03-08] MEDS: ZOSYN 3.375 GM in NS 50 ML IV SCH ×4 (02:16→21:29)
[2019-03-08] MEDS: SOLU-MEDROL IV SCH ×2 (03:45→17:54)
[2019-03-08] MEDS: XOPENEX NEB INH SCH ×6 (03:53→22:57)
[2019-03-08] MEDS: ATROVENT NEB INH SCH ×6 (03:53→22:57)
[2019-03-08 05:38] LABS: BASO# 0.01 X1000 (0.0-0.2); BASO% 0.1 % (0.0-0.8); HEMATOCRIT 26.2 % (37.0-47.0); HEMOGLOBIN 8.3 g/dL (12.0-16.0); IMM GRAN# 0.06 X1000 (0.0-0.04); IMM GRAN% 0.6 % (0.0-0.5); LYMPH# 1.27 X1000 (1.2-3.4); MCH 27.2 PG (27-31); MCHC 31.7 g/dL (33-37); MCV 85.9 FL (81-99); MONO% 4.7 % (1.7-9.3); MPV 8.8 FL (7.4-10.4); NEUT# 8.76 X1000 (1.4-6.5); NEUT% 82.6 % (42.2-75.2); PLT 811 X1000 (130-400); RBC 3.05 XMIL (4.2-5.4); RDW 19.5 % (11.5-14.5)
[2019-03-08] MEDS: PRILOSEC PO SCH (05:53)
[2019-03-08 06:27] LABS: AGAP 10; ALB/GLOB RATIO 0.7; ALBUMIN 2.4 g/dL (3.5-5.0); ALKALINE PHOSPHATASE 68 U/L (32-104); BUN 22 mg/dL (8-22); CALCIUM 8.6 mg/dL (8.8-10.2); CHLORIDE 105 mmol/L (98-107); COSMO 287; ESTIMATED GFR 56; GLUCOSE 143 mg/dL (70-104); GOT 16 U/L (10-30); GPT 15 U/L (10-36); POTASSIUM 4.5 mmol/L (3.5-5.1); SODIUM 141 mmol/L (136-145); TCO2 26 mmol/L (25-35); TOTAL BILIRUBIN < 0.15 mg/dL (0.20-1.00); TOTAL PROTEIN 5.9 g/dL (6.3-8.3)
[2019-03-08 07:29] LABS: BANDS 2 % (0-1); LARGE PLATELETS 3+; LYMPHS 8 % (21-51); MONO 3 % (1-9); NRBC 4 % (0-0); SEGS 87 % (42-75)
[2019-03-08] MEDS: PULMICORT INH SCH ×2 (07:46→18:54)
--- NOTE | 2019-03-08 08:27 | Diag Imaging Result Doc PS360 ---
EXAM: CHEST-2 VIEWS HISTORY: hypoxia TECHNIQUE: Chest two views COMPARISON: 03/06/2019 FINDINGS: The lungs are well expanded except for atelectasis in the right base. This has improved. Decreased right basilar infiltrates. There is a small right pleural effusion. No cardiomegaly. No pulmonary edema. Mild scoliosis. IMPRESSION: Interval improvement. Electronically signed by Greg Arreguin 03/08/2019 8:25 AM
[2019-03-08] MEDS ORDERED: VANCOMYCIN 1.6 GM in NS 250 ML IV SCH (09:00)
[2019-03-08] MEDS: NEURONTIN PO SCH ×3 (09:22→17:54)
[2019-03-08] MEDS: NICODERM PATCH TD SCH (09:22)
[2019-03-08] MEDS: MIRALAX PO SCH (09:23)
[2019-03-08] MEDS ORDERED: SODIUM CHLORIDE 0.9% 20 ML ONE (11:45)
[2019-03-08] MEDS ORDERED: XYLOCAINE 2% VISCOUS ONE (11:45)
[2019-03-08] MEDS ORDERED: XYLOCAINE 2% ONE (11:45)
[2019-03-08] MEDS ORDERED: EPINEPHRINE ONE (11:45)
[2019-03-08] MEDS ORDERED: DIPRIVAN 1% ONE (11:53)
[2019-03-08] MEDS ORDERED: XYLOCAINE-MPF 2% ONE (11:53)
--- NOTE | 2019-03-08 12:27 | PROGRESS NOTE ---
DATE: 03/08/2019 SUBJECTIVE: This morning, Ms. Snow refers to be doing fairly okay. She has been coughing up some bloody stuff. Early on this morning, there was a short CAT call on Ms. Snow because she was kind of suffocating on her own saliva. OBJECTIVE: Vital Signs: Blood pressure is 128/63, pulse of 84, respirations are 15, temperature is 97.4 degrees, the patient is saturating 95% on room air. General Examination: Ms. Snow is a 63-year-old, female. She was sitting up in a chair. No distress. HEENT: Mucosa is pink and moist. Anicteric. Acyanotic. Neck: Supple. Chest: Good air entry bilaterally. There are still some crackles in the posterior lung barrera, more so to the right lower lobe. Cardiovascular: Regular rate and rhythm. No murmurs, no rubs, no gallops. GI: Abdomen was soft, nontender. Bowel sounds present. Extremities: No pedal edema. 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 Musculoskeletal: There is some chronic deformity of the right knee from previous meniscus injury. There is also a cervical scar from a previous cervical spine surgery. Laboratory Data: WBC is down to 10.60, hemoglobin is 8.3, platelet count of 811,000. The patient's chemistry is all within normal range. Vancomycin level is 13.40. So far, sputum culture has shown normal lyubov. Diagnostic Studies: A chest x-ray this morning shows interval improvement. ASSESSMENT: 1. Acute hypoxemic respiratory failure on presentation, improved. Patient is off nasal cannula. 2. Right lower lobe consolidation, concerning for postobstructive pneumonia. Followup chest x- ray this morning shows improvement. We will continue with the current antimicrobial coverage. 3. Suspect a right lower lobe mass. The patient is pending bronchoscopy today. 4. Suspected chronic obstructive pulmonary disease with mild exacerbation on presentation. The patient is not bronchospastic any anymore. 5. Hyponatremia, improved. 6. History of tobacco use and abuse. Cessation has been advised. 7. Protein calorie malnutrition. We will continue with diet supplementation. 8. Gastroesophageal reflux. Patient is on a proton pump inhibitor. PLAN: In general, I think Ms. Snow is doing remarkably well. She is not using oxygen at this point. She seems to be consuming almost 100% of all her meals. Chest x-ray this morning is showing some improvement in the right lower lobe consolidation. Ms. Snow trace pending bronchoscopy today. She has expressed her desire to wanting to be discharged tomorrow. We are going to follow up on the bronchoscopy report and make a decision in that regard. cc: Gautam Lagunas MD
[2019-03-08] MEDS ORDERED: VERSED ONE ×2 (12:39→12:47)
[2019-03-08] MEDS ORDERED: ROBINUL ONE (12:49)
--- NOTE | 2019-03-08 13:47 | Diag Imaging Result Doc PS360 ---
EXAM: CHEST-PORTABLE HISTORY: post bronc TECHNIQUE: Chest single view COMPARISON: 8:17 AM FINDINGS: No postprocedural pneumothorax. There is a small right pleural effusion with basilar atelectasis and infiltrates. IMPRESSION: No postprocedural pneumothorax. Electronically signed by Greg Arreguin 03/08/2019 1:45 PM
[2019-03-08] MEDS: FLEXERIL PO SCH (15:33)
--- NOTE | 2019-03-08 18:48 | OPERATIVE NOTE ---
PROCEDURE DATE: 03/08/2019 PROCEDURE: Bronchoscopy. REFERRING PHYSICIAN: Gautam Lagunas MD INDICATION: Pneumonia and lung mass, possible post obstruction. DESCRIPTION OF PROCEDURE: Consent obtained. Conscious sedation administered via anesthesia. Local lidocaine used to right nostril. Normal vocal cord movements. All major segments visualized in the right lower lobe area specifically and right middle and posterior segments. There is infiltration of the wall, likely malignant but not certain. There is postobstruction pus that came out. We did brushings. We used diluted epinephrine and we did transbronchial biopsies, sent for pathology, microbiology, and cytology. All samples were taken with fluoroscopy scanning. The patient tolerated the procedure well. No significant bleeding. Blood loss was less than a couple of mL, and we are waiting for official chest x-ray. IMPRESSION: 1. Postobstruction pneumonia. 2. Infiltration of mucous membranes of the right lower lobe segments, mainly the basal and posterior, maybe the medial too. The infiltration is so aggressive looking, likely malignant but no specific complete obstruction or endobronchial very obvious looking tumor. PLAN: Awaiting cytology, pathology and microbiology results. cc: Dominguez Reis MD [facility]
[2019-03-09] MEDS: ZOSYN 3.375 GM in NS 50 ML IV SCH ×2 (02:15→08:23)
[2019-03-09] MEDS: XOPENEX NEB INH SCH ×3 (02:58→12:15)
[2019-03-09] MEDS: ATROVENT NEB INH SCH ×3 (02:58→12:15)
[2019-03-09] MEDS: SOLU-MEDROL IV SCH (04:17)
[2019-03-09 05:49] LABS: BASO# 0.01 X1000 (0.0-0.2); BASO% 0.1 % (0.0-0.8); HEMATOCRIT 30.1 % (37.0-47.0); HEMOGLOBIN 9.3 g/dL (12.0-16.0); IMM GRAN# 0.12 X1000 (0.0-0.04); IMM GRAN% 0.9 % (0.0-0.5); LYMPH# 2.16 X1000 (1.2-3.4); MCH 27.4 PG (27-31); MCHC 30.9 g/dL (33-37); MCV 88.5 FL (81-99); MONO% 6.3 % (1.7-9.3); MPV 8.7 FL (7.4-10.4); NEUT# 9.65 X1000 (1.4-6.5); NEUT% 75.7 % (42.2-75.2); PLT 855 X1000 (130-400); RDW 20.6 % (11.5-14.5); WBC 12.74 X1000 (4.8-10.8)
[2019-03-09] MEDS: PRILOSEC PO SCH (06:17)
[2019-03-09 07:02] LABS: ALB/GLOB RATIO 0.7; ALBUMIN 2.6 g/dL (3.5-5.0); CALCIUM 8.1 mg/dL (8.8-10.2); POTASSIUM 4.2 mmol/L (3.5-5.1); TOTAL BILIRUBIN 0.15 mg/dL (0.20-1.00); TOTAL PROTEIN 6.4 g/dL (6.3-8.3)
--- NOTE | 2019-03-09 07:25 | Diag Imaging Result Doc PS360 ---
EXAM: CHEST-1 VIEW 03/09/2019 HISTORY: postobstructive pneumonia TECHNIQUE: AP portable at 0513 COMMENT: There is a right pleural effusion. This has increased in volume since 03/08/2019. There are atelectatic changes in both lung bases which are slightly worse. The possibility of pneumonia in the right lower lobe cannot be excluded. IMPRESSION: Worsened right pleural effusion. Bibasilar atelectasis. Right lower lobe pneumonia. Electronically signed by Uriah Mills 03/09/2019 7:23 AM
[2019-03-09] MEDS: PULMICORT INH SCH (07:47)
[2019-03-09] MEDS: NICODERM PATCH TD SCH (08:23)
[2019-03-09] MEDS: NEURONTIN PO SCH ×2 (08:23→11:50)
[2019-03-09] MEDS: MIRALAX PO SCH (08:25)
[2019-03-09] MEDS: FLEXERIL PO SCH (11:50)
[2019-03-09] MEDS ORDERED: PNEUMOVAX 23 IM ONE (11:58)
[2019-03-09 12:09] VITALS: BP 133/60
--- NOTE | 2019-03-10 13:05 | DISCHARGE SUMMARY ---
ADMISSION DATE: 03/04/2019 DISCHARGE DATE: 03/09/2019 DISPOSITION: Home. FOLLOW-UP: On 03/18/2019 at 1:30 in the afternoon with Dr. Reis. ADMISSION DIAGNOSIS: 1. Right lower lobe mass with postobstructive pneumonia. 2. Urinary tract infection. 3. Diverticulosis. 4. Chronic obstructive pulmonary disease. DIAGNOSIS AT THE TIME OF DISCHARGE: 1. Acute hypoxemic respiratory failure on presentation, resolved. 2. Right lower lobe consolidation concerning for postobstructive pneumonia. 3. Strep pneumonia. 4. Right lower mass concerning for malignancy. Pathology pending at the time of discharge. 5. COPD in exacerbation. 6. Hyponatremia, resolved. 7. History of tobacco use and abuse. 8. Protein calorie malnutrition. 9. GERD. DISCHARGE MEDICATIONS: 1. Gabapentin 300 three times per day. 2. Flexeril 5 mg p.o. with lunch. 3. Augmentin 875 b.i.d. 4. Prednisone 20 mg p.o. daily. 5. Omeprazole 20 mg p.o. daily. 6. Doxycycline 100 mg b.i.d. PRESENTING COMPLAINT: Shortness of breath, chest burning. HISTORY OF PRESENTING COMPLAINT: Ms. Snow is a 63-year-old female with multiple comorbidities including diverticulosis, COPD and ongoing tobacco use and abuse, came to the emergency department because of shortness of breath, some cough. The evaluation revealed imaging studies showed that there was a right lower lobe consolidation. The patient was started on broad- spectrum antibiotics and was admitted to the medical floor. HOSPITAL COURSE: Ms. Snow refers to be doing fairly well. She was initially seen at [place] and was transferred to [facility] for higher level of care. During the hospital course, she was started on broad-spectrum IV antibiotics, some steroids, bronchodilation therapy. She continued to show improvement. She underwent bronchoscopy and they found out that she had some infiltrating mass in the right lower and middle bronchus. Biopsies were taken at the time of the discharge. Results were still pending. Patient will follow up with Dr. Reis on that. After the patient also got discharged, we got the results of the revised urine strep pneumo antigen, which seems to be positive. The patient was already on medication that targeted the strep pneumo anyway and she has been discharged on Augmentin which will do as well. This morning she felt a lot better. She was saturating 100% on room air. Her vitals, blood pressure was 133/60, pulse of 79, respirations 18, temperature 98.1 degrees. We thought she was stable for discharge. I have discussed with Dr. Reis, who is also okay for patient to be discharged. He also recommend that the patient follows up with him on 03/18/2019 at 1:30 p.m. I have communicated this information to the patient and to the discharge nurse as well. TIME SPENT FOR DISCHARGE: 34 minutes. cc: Gautam Lagunas MD MTDD
== END 2019-03-09 12:57 | disposition home or self-care (01) | DRG 166 ==
LOC: P.ED 08:43 → SUATTDRO 08:44 → P.MEDSURG 12:59 → 1N 18:43
PROVIDERS: ATTEND Internal Medicine